=== PATIENT | male | born 1980 | race African-American/Black ===

== ENCOUNTER 2016-07-30 15:33 | Emergency (ER) | payer OTHER ==
[2016-07-30] MEDS ORDERED: HYDROcodone/ACETAMIN 5-325 MG* 1 TAB PO ONE (16:38)
[2016-07-30] MEDS ORDERED: Enoxaparin(*) 100 MG/ML SYR SUBCUT ONE ×2 (16:41→18:52)
[2016-07-30] MEDS ORDERED: Warfarin TAB(*) 4 MG PO ONE ×2 (16:41→18:52)
[2016-07-30 18:01] LABS: Hematocrit 39 % (42-52); Hemoglobin 13.3 g/dl (14.0-18.0); Mean Corpuscular HGB Conc 34 g/dl (31-36); Mean Corpuscular Hemoglobin 30 pg (27-31); Mean Corpuscular Volume 88 fL (80-94); Mean Platelet Volume 7 um3 (7.4-10.4); Red Blood Count 4.39 10^6/ul (4.0-5.4); Red Cell Distribution Width 14 % (10.5-15); White Blood Count 5.2 10^3/ul (3.5-10.8)
[2016-07-30 18:14] LABS: Albumin 4.2 g/dL (3.2-5.2); BUN/Creatinine Ratio 12.1 (8-20); Calcium 9.6 mg/dL (8.6-10.3); EGFR African American 90.6 (>60); EGFR Non-African American 70.5 (>60); Globulin 3.2 g/dL (2-4); Potassium 3.9 mmol/L (3.5-5.0); Total Bilirubin 0.6 mg/dL (0.2-1.0); Total Protein 7.4 g/dL (6.4-8.9)
[2016-07-30 19:39] VITALS: BP 141/80
--- NOTE | 2016-07-31 12:30 | ED ---
Dayan Woods Matthew, scribed for Juan M Hamm MD on 07/30/16 at 1636 . Lower Extremity - HPI Summary HPI Summary: A 36 y/o male presents to the ED with pain in the left calf since 5 days ago. He just had an US completed, which showed a DVT in the left leg. He has been on Xarelto 20mg a day for about 2 years and was on Coumadin before Xarelto. He developed the DVT while on the blood thinners. The patient states that he has not missed any doses of Xarelto. - History of Current Complaint Chief Complaint: EDExtremityLower Stated Complaint: SENT FROM IMAGING Time Seen by Provider: 07/30/16 16:12 Hx Obtained From: Patient Onset/Duration: Still Present Severity Initially: Moderate Severity Currently: Moderate Pain Intensity: 8 Pain Scale Used: 0-10 Numeric Timing: Constant Location: Is Discrete @ - left calf Able to Bear Weight: Yes - Allergies/Home Medications Allergies/Adverse Reactions: Allergies Allergy/AdvReac Type Severity Reaction Status Date / Time contrast iv dye Allergy Anaphylatic Uncoded 07/30/16 15:39 Shock PMH/Surg Hx/FS Hx/Imm Hx Cardiovascular History: Reports: Hx Hypercholesterolemia, Hx Hypertension Respiratory History: Reports: Hx Asthma, Hx Pulmonary Embolism GI History: Reports: Hx Gastroesophageal Reflux Disease Infectious Disease History: No Infectious Disease History: Denies: Traveled Outside the [place] in Last 30 Days - Family History Known Family History: Positive: Diabetes Family History: No FHx of clotting disorders - Social History Alcohol Use: None Substance Use Type: Reports: None Smoking Status (MU): Unknown if Ever Smoked Review of Systems Constitutional: Negative Eyes: Negative ENT: Negative Cardiovascular: Negative Respiratory: Negative Gastrointestinal: Negative Genitourinary: Negative Positive: Myalgia - left calf pain Skin: Negative Neurological: Negative Psychological: Normal All Other Systems Reviewed And Are Negative: Yes Physical Exam Triage Information Reviewed: Yes Vital Signs On Initial Exam: Initial Vitals Temp Pulse Resp BP Pulse Ox 97.4 F 66 17 184/102 99 07/30/16 15:37 07/30/16 15:37 07/30/16 15:37 07/30/16 15:37 07/30/16 15:37 Vital Signs Reviewed: Yes Appearance: Positive: Well-Appearing, Pain Distress - mild Skin: Positive: Warm, Skin Color Reflects Adequate Perfusion, Dry Head/Face: Positive: Normal Head/Face Inspection Eyes: Positive: EOMI, FLAKITA ENT: Positive: Normal ENT inspection Neck: Positive: Supple, Nontender Respiratory/Lung Sounds: Positive: Clear to Auscultation, Breath Sounds Present Cardiovascular: Positive: RRR Abdomen Description: Positive: Nontender, Soft Bowel Sounds: Positive: Present Musculoskeletal: Positive: Strength/ROM Intact Neurological: Positive: Alert, Oriented to Person Place, Time Psychiatric: Positive: Affect/Mood Appropriate - [place] Coma Scale Coma Scale Total: 15 Diagnostics - Vital Signs Vital Signs Temp Pulse Resp BP Pulse Ox 07/30/16 15:40 97.4 F 65 17 184/102 99 07/30/16 15:37 97.4 F 66 17 184/102 99 - Laboratory Lab Results: Lab Results 07/30/16 07/30/16 07/30/16 Range/Units 17:50 17:50 17:50 WBC 5.2 (3.5-10.8) 10^3/ul RBC 4.39 (4.0-5.4) 10^6/ul Hgb 13.3 L (14.0-18.0) g/dl Hct 39 L (42-52) % MCV 88 (80-94) fL MCH 30 (27-31) pg MCHC 34 (31-36) g/dl RDW 14 (10.5-15) % Plt Count 184 (150-450) 10^3/ul MPV 7 L (7.4-10.4) um3 Neut % (Auto) 40.9 (38-83) % Lymph % (Auto) 43.0 (25-47) % [place] % (Auto) 13.3 H (1-9) % Eos % (Auto) 2.1 (0-6) % Baso % (Auto) 0.7 (0-2) % Absolute Neuts (auto) 2.1 (1.5-7.7) 10^3/ul Absolute Lymphs (auto) 2.2 (1.0-4.8) 10^3/ul Absolute Monos (auto) 0.7 (0-0.8) 10^3/ul Absolute Eos (auto) 0.1 (0-0.6) 10^3/ul Absolute Basos (auto) 0 (0-0.2) 10^3/ul Absolute Nucleated RBC 0.01 10^3/ul Nucleated RBC % 0.2 INR (Anticoag Therapy) 1.46 H (0.89-1.11) Sodium 136 (133-145) mmol/L Potassium 3.9 (3.5-5.0) mmol/L Chloride 105 (101-111) mmol/L Carbon Dioxide 26 (22-32) mmol/L Anion Gap 5 (2-11) mmol/L BUN 14 (6-24) mg/dL Creatinine 1.16 (0.67-1.17) mg/dL Est GFR ( Amer) 90.6 (>60) Est GFR (Non-Af Amer) 70.5 (>60) BUN/Creatinine Ratio 12.1 (8-20) Glucose 93 (70-100) mg/dL Calcium 9.6 (8.6-10.3) mg/dL Total Bilirubin 0.60 (0.2-1.0) mg/dL AST 29 (13-39) U/L ALT 17 (7-52) U/L Alkaline Phosphatase 90 (34-104) U/L Total Protein 7.4 (6.4-8.9) g/dL Albumin 4.2 (3.2-5.2) g/dL Globulin 3.2 (2-4) g/dL Albumin/Globulin Ratio 1.3 (1-3) Result Diagrams: 07/30/16 17:50 07/30/16 17:50 Lab Statement: Any lab studies that have been ordered have been reviewed, and results considered in the medical decision making process. Lower Extremity Course/Dx - Course Course Of Treatment: Mr. Kent was on coumadin for DVT and was switched to xarelto for convenience. He has apparently failed the xarelto as he has a new clot and guarantees me that he has not missed any doses although he transferred facilities a week ago. He will need to go back to the coumadin and I gave him some here as well as his first dose of transitional lovenox. He has no PE symptoms or signs. - Diagnoses Provider Diagnoses: DVT (deep venous thrombosis) Discharge - Discharge Plan Condition: Stable Disposition: HOME Patient Education Materials: Deep Venous Thrombosis (ED), Enoxaparin (By injection) Forms: *Gen. Provider Communication Referrals: [facility] [Outside] Additional Instructions: Please follow-up with your primary care physician. The documentation as recorded by the Dayan farris Matthew accurately reflects the service I personally performed and the decisions made by me, Juan M Hamm MD.
== END 2016-07-30 19:37 | disposition home or self-care (01) ==
LOC: ED 15:33
DX: I82.409 Acute embolism and thrombosis of unspecified deep veins of unspecified lower extremity (principal); M79.605 Pain in left leg
CPT/HCPCS: 36415; 80053; 85025; 85610; 86703; 99283; A9270-GY; J1650